=== PATIENT | female | born 1965 ===

== ENCOUNTER 2021-11-22 14:53 | Outpatient (CLI) | payer MEDICARE, SELFPAY ==
--- NOTE | ~2021-11-22 | XR_ITS ---
XR foot RT standing 2V DATE: 11/22/2021 15:55 INDICATION: Right foot pain TECHNIQUE: Standing AP and lateral views COMPARISON: None FINDINGS: There is plantar calcaneal enthesopathy. No fracture or dislocation, periosteal reaction or bone destruction is detected. IMPRESSION: Plantar calcaneal enthesopathy Reviewed, dictated and finalized at location B.
--- NOTE | ~2021-11-22 | XR_ITS ---
XR foot LT standing 2V DATE: 11/22/2021 15:56 INDICATION: Left foot pain TECHNIQUE: Standing AP and lateral views COMPARISON: None FINDINGS: Mild posterior and moderately prominent plantar calcaneal enthesopathy. Severe osteoarthritic change including spurring at the first metatarsophalangeal joint. No fracture, dislocation, periosteal reaction or bone destruction. IMPRESSION: Severe osteoarthritic change at first metatarsophalangeal joint Calcaneal enthesopathy Reviewed, dictated and finalized at location B.
--- NOTE | ~2021-11-22 | XR_ITS ---
XR hand BI arthritis min 3V DATE: 11/22/2021 15:55 INDICATION: Difficulty using left hand, limited range of motion TECHNIQUE: 4 views of each hand COMPARISON: None FINDINGS: Left hand: There is severe osteophytic change at the triscaphe joint and moderately severe osteoarthr itic change at the first carpometacarpal joint. There is severe osteoarthritic change and prominent spurring at the proximal interphalangeal joint of the second digit. Mild osteoarthritic changes noted at the other interphalangeal joints. No erosive change, fracture, dislocation, periosteal reaction or bone destruction is detected. Right hand: There is narrowing at the triscaphe joint. There is mild osteoarthritic change at most in terphalangeal joints, more severe at the proximal interphalangeal joint of the second digit. No fracture or dislocation, periosteal reaction or bone destruction is detected. No erosive change is noted. IMPRESSION: Bilateral polyarticular osteoarthritis, more prominent on the left Reviewed, dictated and finalized at location B.
--- NOTE | ~2021-11-22 | XR_ITS ---
XR sacroiliac joints min 3V DATE: 11/22/2021 15:56 INDICATION: Bilateral sacroiliac pain TECHNIQUE: AP, bilateral oblique views COMPARISON: None FINDINGS: Postoperative change from anterior lower abdominal wall repair. Degenerative spurring at the sacroiliac joints. No erosive change or ankylosis, fracture or dislocati on. Degenerative disc disease at L5-S1. IMPRESSION: Degenerative change at the sacroiliac joints Degenerative disc disease at L5-S1 Reviewed, dictated and finalized at Location A. Reviewed, dictated and finalized at location B.
[2021-11-22 16:02] LABS: Hematocrit 33.9 % (37.0-47.0); Hemoglobin 11.6 g/dL (12.0-15.0); Mean Corpuscular HGB Conc 34.2 g/dl (32-36); Mean Corpuscular Hemoglobin 30.8 pg (26-34); Mean Corpuscular Volume 89.9 fl (80-100); Mean Platelet Volume 8.4 fl (7.4-10.4); Platelet Count Result 261 k/mm3 (150-375); Red Blood Count 3.77 M/mm3 (4.2-5.4); Red Cell Distribution Width 13.4 % (11.5-14.5); White Blood Count 5.6 K/mm3 (4.5-10.0)
[2021-11-22 16:26] LABS: Alanine Aminotransferase 18 U/L (6-35); Albumin Level 4.6 g/dL (3.5-5.1); Alkaline Phosphatase 104 U/L (38-126); Anion Gap 10 mmol/L (8-16); Aspartate Amino Transferase 24 U/L (14-36); Bilirubin,Total 0.2 mg/dL (0.2-1.3); Blood Urea Nitrogen 10 mg/dL (7-17); CRP 0.9 mg/dL (<1.0); Calcium 9.1 mg/dL (8.4-10.2); Carbon Dioxide 27 mmol/L (22-30); Chloride 93 mmol/L (98-107); Estimated Glomerular Filt Rate > 60; Glucose 126 mg/dL (65-110); Potassium 3.7 mmol/L (3.4-5.0); Sodium 130 mmol/L (137-145); Uric Acid 3.3 mg/dL (2.5-7.5)
[2021-11-22 16:52] LABS: Erythrocyte Sedimentation Rate 18 mm/hr (0-20)
[2021-11-22 17:25] LABS: Rheumatoid Factor < 8.6 IU/ML (<12)
[2021-11-22 18:09] LABS: Vitamin D 25 Hydroxy 53.8 ng/mL
[2021-11-24 21:23] LABS: Anti Cyclic Citrullinated Pept <16 Units (<20)
[2021-11-25 06:01] LABS: Thyroid Peroxidase Antibodies <1 IU/mL (<9)
[2021-11-26 11:57] LABS: SM Antibody <1.0; SM/RNP Antibody <1.0
[2021-11-26 12:02] LABS: SS-A <1.0; SS-B <1.0
== END 2021-11-22 14:54 | disposition home or self-care (01) ==
PROVIDERS: Visit Provider Internal Medicine
DX: M79.7 Fibromyalgia (principal); M18.0 Bilateral primary osteoarthritis of first carpometacarpal joints; M19.042 Primary osteoarthritis, left hand; M19.041 Primary osteoarthritis, right hand; M47.817 Spondylosis without myelopathy or radiculopathy, lumbosacral region; M19.072 Primary osteoarthritis, left ankle and foot; M77.32 Calcaneal spur, left foot; M77.31 Calcaneal spur, right foot; Z51.81 Encounter for therapeutic drug level monitoring; Z79.899 Other long term (current) drug therapy
CPT/HCPCS: 36415; 72202; 73130; 73620; 80053; 82085; 82306; 84550; 85027; 85652; 86038; 86140; 86200; 86225; 86235; 86376; 86430